=== PATIENT | female | born 2000 | race Caucasian/White ===

== ENCOUNTER 2022-01-09 11:12 | Emergency (ER) | payer BC, OTHER ==
[~2022-01-09] VITALS: Ht 165.1 cm; Wt 65.7 kg
[2022-01-09 11:18] VITALS: BP 93/78
[2022-01-09] MEDS ORDERED: LORazepam 0.5 MG (ATIVAN) TABLET PO STA (11:25)
--- NOTE | 2022-01-09 11:25 | ED Fall/Injury ---
General Stated Complaint: FALL - R LEG AND ARM LAC Source: patient Exam Limitations: no limitations History of Present Illness Date Seen by Provider: Jan 09, 2022 Time Seen by Provider: 11:15 Initial Comments Patient to the ER by private conveyance chief complaint she was carrying a pane of glass up some stairs and she fell into it has a laceration along her right anterior leg, abrasions and of the right knee and a laceration on her right forearm. She did not strike her head. She is on a blood thinners. She does not have a tetanus vaccine in the last 5 years. No other significant medical history. She is quite distraught and would like something for anxiety Allergies and Home Medications Allergies Coded Allergies: No Known Drug Allergies (Unverified , 01/09/22) Patient Home Medication List Home Medication List Reviewed: Yes Review of Systems Review of Systems Constitutional: No chills, No diaphoresis Eyes: Denies Blindness, Denies Blurred Vision Ears, Nose, Mouth, Throat: denies ear pain, denies ear discharge Respiratory: No cough, No short of breath Cardiovascular: No chest pain, No edema Gastrointestinal: No abdominal pain, No constipation, No diarrhea, No nausea Genitourinary: No discharge, No dysuria Musculoskeletal: see HPI; No back pain; joint pain, muscle pain Skin: see HPI All Other Systems Reviewed Negative Unless Noted: Yes Past Nfeypfk-Ipwhhj-Znqufd Hx Patient Social History Tobacco Use?: No Use of E-Cig and/or Vaping dev: No Substance use?: No Alcohol Use?: No Physical Exam Vital Signs Vital Signs - First Documented 01/09/22 11:18 Pulse 123 Resp 30 B/P (MAP) 93/78 (83) Pulse Ox 98 Capillary Refill : Height, Weight, BMI Height: '" Weight: lbs. oz. kg; BMI Method: General Appearance: WD/WN, mild distress HEENT: PERRL/EOMI, pharynx normal Neck: full range of motion, normal inspection Cardiovascular: normal peripheral pulses, regular rate, rhythm Respiratory: no respiratory distress, no accessory muscle use Peripheral Pulses: 2+ Dorsalis Pedis (R), 2+ Left Dors-Pedis (L), 2+ Radial Pulses (R), 2+ Radial Pulses (L) Gastrointestinal: non tender, soft Neurologic/Psychiatric: alert, oriented x 3, other (Anxious affect, panicking) Skin: other (Multiple abrasions to the right knee and a linear vertical laceration over the mid diaphysis of the fifthOn the right leg measuring about 6 cm long. Right forearm 3 cm linear laceration mid ulna side.) Cristian Coma Score Best Eye Response: (4) Open Spontaneously Best Verbal Response: (5) Oriented Best Motor Response: (6) Obeys Commands Cristian Total: 15 Procedures/Interventions Wound Location: Upper Extremities Other Wound Location Right forearm mid ulna Wound Length (cm): 2.5 Wound's Depth, Shape: superficial, linear Wound Explored: clean Irrigated w/ Saline (ccs): 50 Betadine Prep?: Yes (Chlorhexidine prep) Wound Debrided: minimal Other Closure Supply: Wound Adhesive Wound Location: Lower Extremities Other Wound Location Right mid fibular shaft laterally Wound Length (cm): 5 Wound's Depth, Shape: linear, sub Q Wound Explored: no foreign body removed Irrigated w/ Saline (ccs): 200 Betadine Prep?: Yes (Chlorhexidine) Anesthesia: 1% Lidocaine Volume Anesthetic (ccs): 9 Wound Debrided: minimal Suture: Prolene Suture Size: 4-0 Number of Sutures: 6 Layer Closure?: 1 Number Deep Layer Sutures: 0 Sterile Dressing Applied?: Yes Progress/Results/Core Measures Results/Orders My Orders Orders - SHAZIA CARRASCO Lorazepam Tablet (Ativan Tablet) (01/09/22 11:25) Acetaminophen Tablet/Caplet (Tylenol T (01/09/22 11:30) Forearm, Right, 2 Views (01/09/22 11:26) Tibia/Fibula, Right, 2 Views (01/09/22 11:26) Knee, Right, 3 Views (01/09/22 11:26) Lidocaine 1% Inj 20 Ml (Xylocaine 1% Inj (01/09/22 12:45) Medications Given in ED Current Medications Medications Dose Ordered Sig/Delores Route Start Time Stop Time Status Last Admin Dose Admin Acetaminophen 650 mg ONCE ONCE PO 01/09/22 11:30 01/09/22 11:31 DC 01/09/22 11:30 650 MG Vital Signs/I&O 01/09/22 11:18 Pulse 123 Resp 30 B/P (MAP) 93/78 (83) Pulse Ox 98 Progress Progress Note : Time: 13:36 Progress Note Patient requested that the forearm be glued not stitched. We did do lidocaine and flushing thoroughly of the leg wound as well. We could not find any more shrapnel after nursing staff had already cleaned the wounds. The abrasions on her knee are superficial. Diagnostic Imaging Diagonstic Imaging: Xray Plain Films/CT/US/NM/MRI: leg (r) Comments [facility] [place] [place] NAME: JOZEF GOMEZ MED REC#: [id number] PT STATUS: REG ER : 2000 PHYSICIAN: SHAZIA CARRASCO MD ADMIT DATE: 01/09/22/ER Draft Date of Exam:01/09/22 TIBIA/FIBULA, RIGHT, 2 VIEWS EXAMINATION: Right tibia and fibula radiographs, 2 views, 4 images. COMPARISON: None. HISTORY: 22-year-old female, injury with glass. Right tibia and fibula pain. Concern for foreign body. FINDINGS: There is a lucency within the lateral soft tissues at the level of the mid fibular diaphysis measuring approximately 2.7 x 2.8 cm in size. This is nonspecific and could reflect site of soft tissue injury. A nonradiopaque foreign body such as glass is difficult to exclude. There is no identified acute fracture. There is no cortical or aggressive bone destruction. There is no knee joint effusion. There are some limitations of the exam relating to material external to the patient. IMPRESSION: 1. Abnormal lucency projecting within the lateral soft tissues at the level of the mid fibular diaphysis measuring 2.7 x 2.8 cm in size which potentially could relate to site of soft tissue injury or a non-radiopaque foreign body. 2. No identified acute osseous abnormality. Dictated on workstation # [id number] Dict: 01/09/22 1230 Trans: 01/09/22 1235 [facility] [id number] Interpreted by: IGNACIO ARGUELLO MD Electronically signed by: Reviewed: Reviewed by Me Diagonstic Imaging: Xray Plain Films/CT/US/NM/MRI: knee Comments [facility] [place] [place] NAME: KEYONNA GOMEZNED Mcconnell MED REC#: [id number] PT STATUS: REG ER : 2000 PHYSICIAN: SHAZIA CARRASCO MD ADMIT DATE: 01/09/22/ER Signed Date of Exam:01/09/22 KNEE, RIGHT, 3 VIEWS EXAMINATION: Right knee radiographs, 3 views. COMPARISON: None. HISTORY: 22-year-old female, injury with glass. Right knee pain. FINDINGS: There is no radiographically apparent foreign body in the included whqss-ak-cyzh. There is no knee joint effusion. There is no identified acute fracture. The joint spaces are well-preserved. IMPRESSION: 1. No radiographically visible foreign body in the included [id number]-[id number]. 2. No identified acute fracture or other acute osseous abnormality. Dictated by: Dictated on workstation # [id number] Dict: 01/09/22 1232 Trans: 01/09/22 1239 [facility] [id number] Interpreted by: IGNACIO ARGUELLO MD Electronically signed by: IGNACIO ARGUELLO MD 01/09/22 1239 Reviewed: Reviewed by De Diagonstic Imaging: Xray Plain Films/CT/US/NM/MRI: forearm (r) Comments [facility] [place] NAME: JOZEF GOMEZ [facility] REC#: [id number] PT STATUS: REG ER : 2000 PHYSICIAN: SHAZIA CARRASCO MD ADMIT DATE: 01/09/22/ER Signed Date of Exam:01/09/22 FOREARM, RIGHT, 2 VIEWS EXAMINATION: Right forearm radiograph, 2 views. COMPARISON: None. HISTORY: 22-year-old female, injury with glass. Right forearm pain. Evaluation for foreign body. FINDINGS: There is no identified acute fracture. There is no radiographically visible foreign body. There is no cortical or aggressive bone destruction. IMPRESSION: 1. No radiographically visible foreign body. It should be noted that glass may not be radiopaque. 2. No identified acute osseous abnormality. Dictated by: Dictated on workstation # [id number] Dict: 01/09/22 1230 Trans: 01/09/22 1239 [facility] [id number] Interpreted by: IGNACIO ARGUELLO MD Electronically signed by: IGNACIO ARGUELLO MD 01/09/22 1239 Reviewed: Reviewed by Me Departure Impression Primary Impression: Fall on stairs Qualified Codes: W10.9XXA - Fall (on) (from) unspecified stairs and steps, initial encounter Additional Impressions: Laceration of leg excluding thigh Qualified Codes: S81.811A - Laceration without foreign body, right lower leg, initial encounter Laceration of forearm, right Qualified Codes: S51.811A - Laceration without foreign body of right forearm, initial encounter Abrasion of right knee Qualified Codes: S80.211A - Abrasion, right knee, initial encounter Disposition: HOME, SELF-CARE Condition: Improved Departure-Patient Inst. Decision time for Depature: 13:40 Patient Instructions: Laceration Repair With Stitches (DC), Laceration Repair With Glue ED Add. Discharge Instructions: Keep the wounds clean with regular soap and water. You may use a thin layer of Vaseline or triple antibiotic ointment and cover with gauze dressing. Change the gauze dressing daily or more frequently if it becomes soiled. Return to the ER in 7 to 10 days to have the sutures removed. The glue will flake off on its own over the next week or so. Amoxicillin 500 mg twice a day to prevent infection for 5 days. It is okay to have soap and water, body wash or shampoo run over the wounds. Do not submerse the leg wound under water until the sutures come out. If you are seeing increasing redness, swelling, pain going up the arm or leg, develop fever, intractable nausea or other worrisome symptoms then this could be a sign of infection and you should follow-up with your doctor or return to the ER promptly. Scripts Amoxicillin (Amoxicillin) 500 Mg Capsule 500 MG PO BID for 5 Days, #10 CAP 0 Refills Prov: SHAZIA CARRASCO 01/09/22 Work/School Note: Work Release Form Date Seen in the Emergency Department: Jan 09, 2022 Return to Work: Jan 10, 2022 Restrictions: No Restrictions Other Restrictions Listed Below: Do not submerge sutures until they come out. SHAZIA CARRASCO Jan 09, 2022 11:24
[2022-01-09] MEDS ORDERED: ACETAMINOPHEN 325 MG TABLET PO ONE (11:30)
--- NOTE | 2022-01-09 12:34 | Diagnostic Imaging Report ---
EXAMINATION: Right knee radiographs, 3 views. COMPARISON: None. HISTORY: 22-year-old female, injury with glass. Right knee pain. FINDINGS: There is no radiographically apparent foreign body in the included [id number]-he-xqwc. There is no knee joint effusion. There is no identified acute fracture. The joint spaces are well-preserved. IMPRESSION: 1. No radiographically visible foreign body in the included [id number]-kj-pnym. 2. No identified acute fracture or other acute osseous abnormality. Dictated by: Dictated on workstation # [id number]
--- NOTE | 2022-01-09 12:35 | Diagnostic Imaging Report ---
EXAMINATION: Right tibia and fibula radiographs, 2 views, 4 images. COMPARISON: None. HISTORY: 22-year-old female, injury with glass. Right tibia and fibula pain. Concern for foreign body. FINDINGS: There is a lucency within the lateral soft tissues at the level of the mid fibular diaphysis measuring approximately 2.7 x 2.8 cm in size. This is nonspecific and could reflect site of soft tissue injury. A nonradiopaque foreign body such as glass is difficult to exclude. There is no identified acute fracture. There is no cortical or aggressive bone destruction. There is no knee joint effusion. There are some limitations of the exam relating to material external to the patient. IMPRESSION: 1. Abnormal lucency projecting within the lateral soft tissues at the level of the mid fibular diaphysis measuring 2.7 x 2.8 cm in size which potentially could relate to site of soft tissue injury or a non-radiopaque foreign body. 2. No identified acute osseous abnormality. Dictated by: Dictated on workstation # [id number]
--- NOTE | 2022-01-09 12:36 | Diagnostic Imaging Report ---
EXAMINATION: Right forearm radiograph, 2 views. COMPARISON: None. HISTORY: 22-year-old female, injury with glass. Right forearm pain. Evaluation for foreign body. FINDINGS: There is no identified acute fracture. There is no radiographically visible foreign body. There is no cortical or aggressive bone destruction. IMPRESSION: 1. No radiographically visible foreign body. It should be noted that glass may not be radiopaque. 2. No identified acute osseous abnormality. Dictated by: Dictated on workstation # [id number]
[2022-01-09] MEDS ORDERED: LIDOCAINE 1% INJ 20 ML VIAL INJ ONE (12:45)
[2022-01-09] MEDS ORDERED: AMOX500C2 PO (13:43)
[2022-01-09] MEDS ORDERED: TETANUS,DIPTH,PERTUSS P/F (BOOSTRIX) 0.5 ML VIAL IM ONE (14:00)
== END 2022-01-09 14:05 | disposition home or self-care (01) ==
LOC: ER 11:15
DX: S81.811A Laceration without foreign body, right lower leg, initial encounter (principal); S51.811A Laceration without foreign body of right forearm, initial encounter; S80.211A Abrasion, right knee, initial encounter; W10.9XXA Fall (on) (from) unspecified stairs and steps, initial encounter
CPT/HCPCS: 73090; 73562; 73590; 90715

== ENCOUNTER 2022-11-06 01:12 | Emergency (ER) | payer BC ==
[~2022-11-06] VITALS: Ht 165 cm; Wt 65.8 kg
[~2022-11-06 01:12] MED LIST: AMOX500C2 PO
[2022-11-06 01:23] VITALS: BP 119/71
--- NOTE | 2022-11-06 01:26 | ED General ---
General Stated Complaint: SORE THROAT,POSS FEVER,BOTH EARS PAIN Source of Information: Patient Exam Limitations: No Limitations History of Present Illness Date Seen by Provider: Nov 06, 2022 Time Seen by Provider: 01:25 Initial Comments 22-year-old female presents to the emergency room with a chief complaint of bilateral ear pain, sore throat. Symptom onset 3 days ago. Patient states that she was seen at [facility] urgent care on Monday. States she was swabbed for COVID and it was negative. States she has been taking extra strength Tylenol every 4 hours and 800 mg ibuprofen every 6 without relief of symptoms. Complains of subjective fever. States that she has had a history of multiple ear surgeries with patches to her eardrums. She has also had sinus surgery. Complains of nasal congestion. Mild cough. Nausea. No diarrhea. No dysuria. No abnormal vaginal discharge. No rashes. Is quite tearful secondary to left ear pain greater than right ear pain. States she was also swabbed for strep throat at urgent care and was told it was negative. Was unable to sleep this evening secondary to pain. Timing/Duration: 2-3 Days Severity: Severe Associated Systoms: Fever/Chills (Subjective), Nausea/Vomiting (Nausea without vomit) Allergies and Home Medications Allergies Coded Allergies: No Known Drug Allergies (Unverified , 01/09/22) Patient Home Medication List Home Medication List Reviewed: Yes Amoxicillin/Potassium Clav (Amox Tr-K Clv 875-125 mg Tab) 875 Mg-125 Mg Tablet, 1 EACH PO BID Prescribed by: JOSÉ LUIS MIRANDA on 11/06/22143 Hydrocodone/Acetaminophen (Hydrocodone-Acetamin 5-325 mg) 5 Mg-325 Mg Tablet, 1 TAB PO Q6H PRN for PAIN-MODERATE (5-7) Prescribed by: JOSÉ LUIS MIRANDA on 11/06/22143 Nitrofurantoin Macrocrystal (Nitrofurantoin) 50 Mg Capsule, (Reported) Entered as Reported by: OLAMIDE LOBO on 11/06/22127 Last Action: New Order Ondansetron (Ondansetron Odt) 4 Mg Tab.rapdis, 4 MG SL Q8H PRN for NAUSEA/VOMITING Prescribed by: JOSÉ LUIS MIRANDA on 11/06/22143 Sertraline HCl (Sertraline HCl) 50 Mg Tablet, (Reported) Entered as Reported by: OLAMIDE LOBO on 11/06/22 0128 Last Action: New Order Discontinued Medications Amoxicillin (Amoxicillin) 500 Mg Capsule, 500 MG PO BID Discontinued Reason: No Longer Taking Prescribed by: SHAZIA CARRASCO on 01/09/22 1343 Last Action: Discontinued Review of Systems Review of Systems Constitutional: see HPI EENTM: ear pain, throat pain Respiratory: no symptoms reported Cardiovascular: no symptoms reported Gastrointestinal: nausea Genitourinary: no symptoms reported : No Musculoskeletal: no symptoms reported Skin: no symptoms reported Psychiatric/Neurological: No Symptoms Reported All Other Systems Reviewed Negative Unless Noted: Yes Physical Exam Vital Signs Vital Signs - First Documented 11/06/22 01:23 Temp 36.4 Pulse 89 Resp 16 B/P (MAP) 119/71 (87) Pulse Ox 98 O2 Delivery Room Air Capillary Refill : Height, Weight, BMI Height: '" Weight: lbs. oz. kg; 24.00 BMI Method: General Appearance: WD/WN, Anxious (Tearful) Eyes: Bilateral Eye Normal Inspection, Bilateral Eye PERRL, Bilateral Eye EOMI HEENT: PERRL/EOMI, Normal ENT Inspection, Pharynx Normal, Moist Mucous Membranes, TM Abnormal (L) (Effusion, erythema) Neck: Normal Inspection, Non Tender, Supple Respiratory: Lungs Clear, Normal Breath Sounds, No Accessory Muscle Use, No Respiratory Distress Cardiovascular: Regular Rate, Rhythm, Normal Peripheral Pulses Gastrointestinal: Non Tender, Soft Extremity: Normal Inspection, Normal Range of Motion Neurologic/Psychiatric: Alert, Oriented x3, No Motor/Sensory Deficits Skin: Normal Color, Warm/Dry Procedures/Interventions Suture Size: 4-0 Progress/Results/Core Measures Suspected Sepsis SIRS Temperature: Pulse: Respiratory Rate: Blood Pressure / Mean: Results/Orders My Orders Orders - JOSÉ LUIS MIRANDA MD Rx-Hydrocodone/Apap 5-325 Mg (Rx-Vicodin (11/06/22 01:45) Amoxicillin/Clavulanate Tablet (Augmenti (11/06/22 01:45) Ondansetron Oral Dissolve Tab (Zofran (11/06/22 01:45) Medications Given in ED Current Medications Medications Dose Ordered Sig/Delores Route Start Time Stop Time Status Last Admin Dose Admin Acetaminophen/ Hydrocodone Bitart 1 ea Q6H PRN PO 11/06/22 01:45 11/06/22 02:01 DC 11/06/22 01:59 1 EA Ondansetron HCl 4 mg ONCE ONCE PO 11/06/22 01:45 11/06/22 01:47 DC 11/06/22 01:59 4 MG Vital Signs/I&O 11/06/22 01:23 Temp 36.4 Pulse 89 Resp 16 B/P (MAP) 119/71 (87) Pulse Ox 98 O2 Delivery Room Air Capillary Refill : Departure Impression Primary Impression: Otitis media Qualified Codes: H66.005 - Acute suppurative otitis media without spontaneous rupture of ear drum, recurrent, left ear Disposition: HOME, SELF-CARE Condition: Stable Departure-Patient Inst. Decision time for Depature: 01:42 Referrals: THO VALLES DO (PCP/Family) Primary Care Physician Patient Instructions: Ear Infections (Otitis Media) in Adults (DC) Add. Discharge Instructions: Take the antibiotics twice daily for 7 days. Be sure to complete the entire course. Hydrocodone 5 mg 1 every 6 hours as needed for severe pain. You can take 1 extra strength Tylenol with a hydrocodone every 6 hours. Take ibuprofen 800 mg every 8 hours with food as needed for pain. Zofran/ondansetron 4 mg orally disintegrating tablets 1 every 8 hours as needed for nausea. Be sure and use an alternative form of control while taking a penicillin- based antibiotic. Return to the emergency department for any new, concerning or emergent complaints. Scripts Ondansetron (Ondansetron Odt) 4 Mg Tab.rapdis 4 MG SL Q8H PRN for NAUSEA/VOMITING, #12 TAB Prov: JOSÉ LUIS MIRANDA MD 11/06/22 Hydrocodone/Acetaminophen (Hydrocodone-Acetamin 5-325 mg) 5 Mg-325 Mg Tablet 1 TAB PO Q6H PRN for PAIN-MODERATE (5-7), #6 TAB Prov: JOSÉ LUIS MIRANDA MD 11/06/22 Amoxicillin/Potassium Clav (Amox Tr-K Clv 875-125 mg Tab) 875 Mg-125 Mg Tablet 1 EACH PO BID, #13 TAB Prov: JOSÉ LUIS MIRANDA MD 11/06/22 JOSÉ LUIS MIRANDA MD Nov 06, 2022 01:25
[2022-11-06] MEDS ORDERED: NITR50CA (01:28)
[2022-11-06] MEDS ORDERED: SERT-413 (01:28)
[2022-11-06] MEDS ORDERED: ONDA4TAB11 SL (01:44)
[2022-11-06] MEDS ORDERED: AMOX1TAB12 PO (01:44)
[2022-11-06] MEDS ORDERED: ACHD5005 PO (01:44)
[2022-11-06] MEDS ORDERED: ONDANSETRON 4 MG (ZOFRAN) ORAL DISSOLVE TAB PO ONE (01:45)
[2022-11-06] MEDS ORDERED: AUGMENTIN 875 MG TAB (AMOXICILLIN/CLAVULANATE) PO STA (01:45)
== END 2022-11-06 02:01 | disposition home or self-care (01) ==
LOC: EDUNIT# 01:12 → ER 01:17
DX: H66.92 Otitis media, unspecified, left ear (principal); Z98.890 Other specified postprocedural states
CPT/HCPCS: 99283